=== PATIENT | female | born 1990 | race Caucasian/White ===

== ENCOUNTER 2019-04-06 12:09 | Day surgery (SDC) | payer OTHER ==
[2019-04-06] VITALS (8 sets, daily range): BP systolic 93–107; BP diastolic 53–68; PULSE 48–61; RESP 16–27; Ht 172.7 cm; Wt 52.8 kg
[~2019-04-06] VITALS: Ht 172.7 cm; Wt 52.8 kg
[~2019-04-06 12:09] MED LIST: CEFAZOLIN 2 GM/50 ML (PMX) 50 ML IVPB ONE; SOD CHLORIDE 0.9% 1,000 ML IV SCH
[2019-04-06] MEDS ORDERED: BUPIVACAINE 0.5%/EPI (SDV) 30 ML INJ ONE (14:10)
--- NOTE | 2019-04-06 14:13 | HPN ---
Date/Time of Note Date/Time of Note DATE: 04/06/19 TIME: 14:13 Interval H&P Admission Note Pt. seen H&P reviewed: No system changes MARJORIE ARCHER MD Apr 06, 2019 14:13
[2019-04-06] MEDS ORDERED: BUPIVACAINE 0.25% (MPF) 30 ML INJ ONE (14:16)
[2019-04-06] MEDS ORDERED: LIDOCAINE 1%/EPI 30 ML INJ ONE (14:16)
--- NOTE | 2019-04-06 14:16 | PREAC ---
Date/Time of Note Date/Time of Note DATE: 04/06/19 TIME: 14:15 Anesthesia Eval and Record Evaluation Time Pre-Procedure Interview DATE: 04/06/19 TIME: 14:15 Age 28 Sex female NPO: 8 hrs Preoperative diagnosis right shoulder mass Planned procedure excision right shoulder mass Past Medical History Past Medical History: None Surgery & Anesthesia Issues No known issue Meds Anticoagulation: No Beta Cheng within 24 hr: No Reason Beta Cheng not given: Pt. not on B-Cheng No Active Prescriptions or Reported Meds Current Medications Sodium Chloride 1,000 ml @ 75 mls/hr [id number] IV Last administered on 04/06/19at 12:57; Admin Dose 75 MLS/HR; Start 04/06/19 at 07:00 Meds reviewed: Yes Allergies Coded Allergies: No Known Allergy (Unverified , 04/06/19) Allergies Reviewed: Yes Labs/Studies Labs Reviewed: Reviewed by anesthesiologist test: Negative Pre-procedure Exam Last vitals Vital Signs Date Temp Pulse Resp B/P (MAP) Pulse Ox O2 O2 Flow FiO2 Time Delivery Rate 04/06/19 98.2 61 18 107/57 99 Room Air 13:16 (74) Airway: Adequate mouth opening, Adequate thyromental dist Mallampati: Mallampati II Teeth: Normal Lung: Normal Heart: Normal ASA Physical Status ASA physical status: 1 Emergency: None Planned Anesthetic General/MAC: MAC Planned Pain Management Parenteral pain med Pre-operative Attestations Prior to commencing anesthesia and surgery, the patient was re-evaluated, there was verification of: *The patient's identity *The results of appropriate recent lab work and preoperative vital signs *The above evaluation not changing prior to induction *Anesthetic plan, risk benefits, alternative and complications discussed with patient/family; questions answered; patient/family understands, accepts and wishes to proceed. HOMER DUNN Apr 06, 2019 14:16
[2019-04-06] MEDS ORDERED: FENTAnyl 50 MCG/ML VIAL ONE (14:23)
[2019-04-06] MEDS ORDERED: LIDOCAINE 2% (SDV) 5 ML INJ ONE (14:24)
[2019-04-06] MEDS ORDERED: PROPOFOL 20 ML ONE (14:24)
[2019-04-06] MEDS ORDERED: CEFAZOLIN 1 GM INJ ONE (14:25)
[2019-04-06] MEDS ORDERED: BACITRACIN/POLYMYXIN 28.35 GM OINT TOP ONE (15:06)
--- NOTE | 2019-04-06 15:14 | OPR ---
Date/Time of Note Date/Time of Note DATE: 04/06/19 TIME: 15:10 Operative Report Procedure Date: Apr 06, 2019 Preoperative Diagnosis Soft tissue mass of the right upper back/shoulder Postoperative Diagnosis Soft tissue mass of the right upper back/shoulder Operation/Procedure Performed Excision soft tissue mass right upper back/shoulder, 3 cm Surgeon see signature line Unit Aide None Anesthesia Type: MAC Anesthesiologist: HOMER DUNN Estimated Blood Loss: minimal Transfusion none Specimen Right upper back/shoulder mass Grafts/Implants none Complications none Pt Condition Post Procedure: stable Disposition: PACU Indications Patient is an otherwise healthy 27-year-old female who presented to the office complaining of a mass of the right upper back/shoulder area. This had been present for the past year. Patient reported growth and increasing discomfort. She was scheduled for elective excision for symptom relief and definitive pathological diagnosis. All risks and benefits of the procedure including, but not limited to: Wound infection, excessive bleeding, postoperative seroma/hematoma formation, mass recurrence, etc. were all explained to the patient full detail. She fully understood and wished to proceed with the procedure. Informed consent was obtained. Procedure Description The patient was brought to the operating room and placed on the operating table in the left lateral decubitus position with the right side up. Bilateral sequential compression devices were placed on both lower extremities. A dose of broad-spectrum perioperative intravenous antibiotics was given. The mass which was located in the right upper back/shoulder area was preoperatively marked and confirmed with the patient in the holding area. After adequate sedation was achieved the patient's back and shoulder area were then prepped and draped in standard surgical fashion. After performance of the surgical timeout, a mixture of 0.25% Marcaine and 1% lidocaine with epinephrine was injected in a radial f ashion over the area of the mass creating a field block. An elliptical incision was then made over the mass using a 15 blade scalpel. Incision was carried down through the skin and dermis using sharp dissection. A soft tissue mass in the deep dermis extending into the subcutaneous tissues was identified, consistent with an epidermal inclusion cyst. It was dissected free of surrounding tissues using combination of blunt dissection and Bovie electrocautery. Once it was able to be delivered through the incision it was transected at its base and passed off the field as specimen. It measured approximately 3 cm in maximal dimension. Hemostasis was then inspected for and noted to be total. The wound cavity was then irrigated with warm saline and the irrigant returned clear. Further local anesthesia was then injected around the area of the incision. Incision was then reapproximated using interrupted 3-0 Vicryl sutures for the dermal layer. The skin was reapproximated using interrupted 3-0 nylon sutures in vertical mattress fashion. Incision was cleaned and bacitracin ointment was applied as well as sterile dressings. The patient was then transferred to the recovery room in stable condition. All counts were correct at the end of the case x2 MARJORIE ARCHER MD Apr 06, 2019 15:14
--- NOTE | 2019-04-06 15:16 | PAC ---
Date/Time of Note Date/Time of Note DATE: 04/06/19 TIME: 15:16 Post-Anesthesia Notes Post-Anesthesia Note Last documented vital signs Vital Signs Date Temp Pulse Resp B/P (MAP) Pulse Ox O2 O2 Flow FiO2 Time Delivery Rate 04/06/19 98.2 61 18 107/57 99 Room Air 1516 (74) Activity: WNL Respiratory function: WNL Cardiovascular function: WNL Mental status: Baseline Pain reasonably controlled: Yes Hydration appropriate: Yes Nausea/Vomiting absent: Yes HOMER DUNN Apr 06, 2019 15:16
[2019-04-06] MEDS ORDERED: IBUPROFEN 600 MG TAB PO PRN (15:30)
[2019-04-06] MEDS ORDERED: KETOROLAC 30 MG INJ IV PRN (15:30)
[2019-04-06] MEDS ORDERED: DIPHENHYDRAMINE 50 MG INJ IV PRN (15:30)
[2019-04-06] MEDS ORDERED: METOCLOPRAMIDE 10 MG INJ IV PRN (15:30)
[2019-04-06] MEDS ORDERED: EPHEDrine 25 MG/5 ML SYG IV PRN (15:30)
[2019-04-06] MEDS ORDERED: ALBUTEROL 0.083% (NEB) 2.5 MG/3 ML AMP HHN PRN (15:30)
[2019-04-06] MEDS ORDERED: OXYCODONE/ACETAMINOPHEN (5/325) TAB PO PRN ×2 (15:30)
[2019-04-06] MEDS ORDERED: MEPERIDINE 25 MG INJ IV PRN (15:30)
[2019-04-06] MEDS ORDERED: FENTAnyl 50 MCG/ML VIAL IV PRN ×3 (15:30)
[2019-04-06] MEDS ORDERED: LABETALOL HCL 20MG INJ IV PRN (15:30)
[2019-04-06] MEDS ORDERED: ONDANSETRON 4 MG INJ IV PRN ×2 (15:30)
== END 2019-04-06 16:44 | disposition home or self-care (01) ==
LOC: SDS 12:09
PROVIDERS: ATTEND Surgery
DX: L72.0 Epidermal cyst (principal)
CPT/HCPCS: 23071; 84703; 88307; J0690; J3010; Z7512; Z7610